=== PATIENT | female | born 1935 | race Caucasian/White ===

== ENCOUNTER 2017-01-12 09:42 | Inpatient (IN) ==
[2017-01-12] MEDS ORDERED: 0.9 % Sodium Chloride 500 ML IVC ONE (10:16)
[2017-01-12] MEDS ORDERED: Ondansetron 4 MG/2 ML VIAL IVP ONE ×2 (10:17→12:41)
--- NOTE | 2017-01-12 10:20 | Emergency Department Note ---
Disposition Clinical Impression: Small bowel obstruction, Small bowel perforation, Dehydration, Left lower lobe pneumonia, Pneumoperitoneum Disposition: Admitted As Inpatient Condition: Serious Referrals: Preeti Irvin CNP [Primary Care Provider] - Forms: ED Satisfaction Letter Time of Disposition: 11:45 Nausea/Vomiting/Diarrhea HPI - General Chief complaint: ED Nausea/Vomiting/Diarrhea Stated complaint: sick x3days/NVD Time Seen by Provider: 01/12/17 10:05 Source: patient Limitations: no limitations Nursing Notes Reviewed: Yes Vital Signs Reviewed: Yes - History of Present Illness HPI Narrative: 81-year-old female presents emergency room for nausea vomiting diarrhea and abdominal pain. Started with diarrhea on Saturday. Denies blood in her vomit or stool. No blackness to her stool. Generalized abdominal tenderness. The diarrhea has slowed down but she is now having more vomiting. No documented fevers. She states she has a history of endometrial cancer years ago and also had radiation therapy for that. She denies any recent travels. No recent antibiotic use. Unable to eat or drink much over the past few days. Pt Subjective Complaint: nausea, vomiting, diarrhea, abdominal pain Onset (ago): day(s) Description of emesis: bilious Description of Diarrhea: water, mucous Associated Abdominal Pain: Yes If pain, Location of pain: diffuse Radiation: diffuse Severity: moderate Severity scale (1-10): 5 Quality: cramping Consistency: constant Improves with: nothing Worsens with: eating Associated symptoms: Reports: denies other symptoms - Related Data Allergies Allergy/AdvReac Type Severity Reaction Status Date / Time Sulfa (Sulfonamide Allergy Hives Verified 01/12/17 09:47 Antibiotics) All systems ED: reviewed and negative except as stated. Constitutional: Reports: as per HPI Eyes: Reports: as per HPI Cardiovascular: Reports: as per HPI Respiratory: Reports: as per HPI Gastrointestinal: Reports: abdominal pain, nausea, vomiting, diarrhea Genitourinary: Reports: as per HPI Musculoskeletal: Reports: as per HPI Neurological: Reports: as per HPI Psychiatric: Reports: as per HPI Endocrine: Reports: as per HPI Hematological/Lymphatic: Reports: as per HPI Past Medical History - Past Medical History Medical history: Reports: hypertension, osteoporosis Psychiatric history: Reports: no psych history - Social History Smoking Status: Unknown if ever smoked Smokeless Tobacco Status: No Alcohol use: Reports: none Drug use: Reports: none Physical Exam - General Limitations: no limitations General appearance: alert - Head Head exam: atraumatic, normocephalic - ENT ENT exam: mucous membranes dry - Neck Neck exam: Present: normal inspection - Respiratory Respiratory exam: Present: normal lung sounds bilaterally. Absent: respiratory distress - Cardiovascular Cardiovascular exam: Present: regular rate, normal rhythm - Abdominal Exam Abdominal exam: Present: soft, tenderness (Generalized tenderness on palpation with peritoneal signs. +guarding ), hyperactive bowel sounds. Absent: diminished bowel sounds, organomegaly - Extremities Exam Extremities exam: Present: normal inspection - Expanded Lower Extremity Exam Hip/Pelvis exam: Present: normal inspection - Back Exam Back exam: Present: normal inspection - Neurological Exam Neurological exam: Present: alert, oriented X3 - Psychiatric Psychiatric exam: Present: normal affect, normal mood - Skin Skin exam: Present: warm, dry, intact Course Course Narrative: Patient CT scan was abnormal. I spoke with the radiologist who is concerned about small bowel obstruction with a questionable volvulus in the right side of her abdomen. She also has extensive free air throughout the abdomen. He suspects a perforation of the proximal jejunum. I consult with general surgery immediately. He has come down to see the patient in the emergency department. We are placing him in NG-tube for her. IV fluids are running. She will be taken to the operating room. Vital Signs Temperature 98.2 F 01/12/17 09:46 Pulse Rate 95 01/12/17 09:46 Respiratory Rate 18 01/12/17 09:46 Blood Pressure 149/82 01/12/17 09:46 O2 Sat by Pulse Oximetry 96 01/12/17 09:46 Temperature 98.2 F 01/12/17 09:46 Pulse Rate 84 01/12/17 11:17 Respiratory Rate 18 01/12/17 11:17 Blood Pressure 167/88 01/12/17 11:17 O2 Sat by Pulse Oximetry 96 01/12/17 11:17 Oxygen Delivery Oxygen Delivery Room Air Nausea/Vomiting/Diarrhea - Medical Records Medical records reviewed: Yes I reviewed the patient's medical records. - Lab Data Lab results reviewed: Yes I reviewed the patient's lab results. Result diagrams: 01/12/17 10:20 01/12/17 10:20 Lab Results 01/12/17 01/12/17 01/12/17 Range/Units 10:20 10:20 10:20 WBC 11.6 H (4.3-11.1) K/mcL RBC 4.63 (3.82-4.97) M/mcL Hgb 14.9 (11.5-15.4) g/dL Hct 42.2 (35.3-44.9) % MCV 91.1 (83.0-100.0) fL MCH 32.2 (28.0-33.3) pg MCHC 35.3 (31.6-35.5) g/dL RDW 11.9 (11.5-14.5) % Plt Count 190 (140-400) K/mcL MPV 9.5 (9.4-12.4) fL Immature Gran % 0.3 (0-4) % Seg Neutrophils % 93.9 % Lymphocytes % 2.7 % Monocytes % 3.0 % Eosinophils % 0.0 % Basophils % 0.1 % Neutrophils # 10.9 H (1.6-8.9) K/mcL Lymphocytes # 0.3 L (0.6-4.6) K/mcL Monocytes # 0.4 (0.0-1.3) K/mcL Eosinophils # 0.0 (0.0-0.6) K/mcL Basophils # 0.0 (0.0-0.2) K/mcL Sodium 127 L (136-145) mEq/L Potassium 3.3 L (3.5-4.5) mEq/L Chloride 88 L (98-109) mEq/L Carbon Dioxide 27 (19-29) mEq/L BUN 23 H (7-20) mg/dL Creatinine 0.96 (0.57-1.11) mg/dL Est GFR ( Amer) > 60 (> 60) Est GFR (Non-Af Amer) 56 L (> 60) BUN/Creatinine Ratio 24 (6-26) Glucose 185 H (70-99) mg/dL Calculated Osmolality 272 L (280-300) Lactic Acid 1.2 (0.5-2.2) mmol/L Calcium 10.0 (8.6-10.8) mg/dL Total Bilirubin 1.4 H (0.2-1.2) mg/dL Direct Bilirubin 0.6 H (0.0-0.5) mg/dL Indirect Bilirubin 0.8 (0.0-1.2) mg/dL AST 15 (5-34) Units/L ALT 17 (0-55) Units/L Alkaline Phosphatase 66 (38-126) Units/L Serum Total Protein 7.5 (6.0-8.3) g/dL Albumin 3.2 L (3.5-5.0) g/dL Globulin 4.3 H (2.4-3.5) g/dL Albumin/Globulin Ratio 0.7 L (1.1-2.2) Lipase < 4 L (8-78) Units/L - Radiology Data Radiology results reviewed: Yes I reviewed the patient's radiology results. - EKG Data EKG attestation: Yes I reviewed and interpreted this EKG. EKG results narrative: Rate of 89. Normal sinus rhythm. Normal axis. MD interval 207. QRS 93. Corrected QT 386. No signs of acute ischemia. Critical Care Time Critical Care Time: Yes Total Critical Care Time: 35 Attestation: Critical care time spent in consultation with the radiologist as well as with the general surgeon as well as medical management and preoperative workup.
[2017-01-12 10:31] LABS: Basophils % 0.1 %; Hematocrit 42.2 % (35.3-44.9); Hemoglobin 14.9 g/dL (11.5-15.4); Immature Granulocytes % 0.3 % (0-4); Lymphocytes # 0.3 K/mcL (0.6-4.6); Lymphocytes % 2.7 %; Mean Corpuscular HGB Conc 35.3 g/dL (31.6-35.5); Mean Corpuscular Hemoglobin 32.2 pg (28.0-33.3); Mean Corpuscular Volume 91.1 fL (83.0-100.0); Mean Platelet Volume 9.5 fL (9.4-12.4); Monocytes # 0.4 K/mcL (0.0-1.3); Neutrophils # 10.9 K/mcL (1.6-8.9); Platelet Count 190 K/mcL (140-400); Red Blood Count 4.63 M/mcL (3.82-4.97); Red Cell Distribution Width 11.9 % (11.5-14.5); Segmented Neutrophils % 93.9 %
[2017-01-12 10:46] LABS: Alanine Aminotransferase 17 Units/L (0-55); Albumin 3.2 g/dL (3.5-5.0); Albumin/Globulin Ratio 0.7 (1.1-2.2); Alkaline Phosphatase 66 Units/L (38-126); Aspartate Amino Transferase 15 Units/L (5-34); BUN/Creatinine Ratio 24 (6-26); Bilirubin,Direct 0.6 mg/dL (0.0-0.5); Bilirubin,Indirect 0.8 mg/dL (0.0-1.2); Bilirubin,Total 1.4 mg/dL (0.2-1.2); Blood Urea Nitrogen 23 mg/dL (7-20); Carbon Dioxide 27 mEq/L (19-29); Chloride 88 mEq/L (98-109); Globulin 4.3 g/dL (2.4-3.5); Glucose 185 mg/dL (70-99); Osmolality,Calculated 272 (280-300); Potassium 3.3 mEq/L (3.5-4.5); Sodium 127 mEq/L (136-145); Total Protein 7.5 g/dL (6.0-8.3); eGFR For African Americans > 60 (> 60); eGFR For Non-African Americans 56 (> 60)
[2017-01-12 10:47] LABS: Lipase < 4 Units/L (8-78)
[2017-01-12] MEDS ORDERED: 0.9 % Sodium Chloride 1,000 ML IVC SCH ×2 (11:30→16:24)
--- NOTE | 2017-01-12 12:06 | General Surg History&Physical ---
Date of Encounter: 01/12/17 Time of Encounter: 12:03 Assessment and Plan (1) Small bowel perforation Current Visit: Yes Status: Acute Plan for total laparotomy. It appears on the CT that she has a perforated viscus. We will identify the perforation and likely resect a portion of bowel. I have discussed with the patient's to the risks benefits and expected outcomes. Due to her advanced age and probable perforation I did explain to the patient and her that she could be transferred to the ICU following surgery and be on a short moderate term intubation and respiratory support. They understand. We discussed the other risks that include but not limited to bleeding, infection, further injury, respiratory failure, DVT/PE, heart attack and . The assessment and plan as outlined above was discussed with the patient and/or family members who expressed understanding and agreement. All questions were answered. History of Present Illness HPI: Ms. Varela is a 81 year old female with 3 days of nausea, vomiting, and abdominal pain. Patient reports that she had endometrial cancer approximately 7 -8 years ago. She underwent a robotic hysterectomy. Once surgery was completed she received radiation to her pelvis. She states she has had diarrhea on and off since that time. This tends to be food related. She reports no pain like this in the past. She states the pain is severe in nature. Seems to be all over her abdomen. She cannot locate one particular area. She finally became so ill that she had report to the emergency department. Past Med Surg Social Fam HX - Past Medical History Medical history: hypertension, osteoporosis, other (Endometrial cancer) Psychiatric history: no psych history - Past Surgical History Surgical History: hysterectomy - Social History Smoking Status: Unknown if ever smoked Smokeless Tobacco Status: No Alcohol use: none Drug use: none Medications and Allergies Allergies Sulfa (Sulfonamide Antibiotics) Allergy (Verified 01/12/17 09:47) Hives Review of Systems All systems PM: A 10-system review of systems was performed and is negative for pertinent findings except as documented above in the HPI. General Surgery Exam Initial Vital Signs Temp Pulse Resp BP Pulse Ox 98.2 F 95 18 149/82 96 01/12/17 09:46 01/12/17 09:46 01/12/17 09:46 01/12/17 09:46 01/12/17 09:46 - General physical appearance well nourished, moderate distress - Eyes PERRL, normal ocular movement - Neck trachea midline - Respiratory normal respiratory effort, clear to percussion - Cardiovascular Cardiovascular exam: Present: NR - Abdomen Abdomen general surgery: Present: tympanic, distended, tender Abdominal Tenderness: Present: diffusely - Integumentary Integumentary general surgery: Present: warm and dry, no abnormal pigmentation - Neurologic Present: CN 2-12 grossly intact, normal sensation - Musculoskeletal Present: normal gait, normal posture - Psychiatric Psychiatric general surgery: Present: A&Ox3, speech is normal Results - Labs 01/12/17 10:20 01/12/17 10:20 Abnormal lab results WBC 11.6 K/mcL (4.3-11.1) H 01/12/17 10:20 Neutrophils # 10.9 K/mcL (1.6-8.9) H 01/12/17 10:20 Lymphocytes # 0.3 K/mcL (0.6-4.6) L 01/12/17 10:20 Sodium 127 mEq/L (136-145) L 01/12/17 10:20 Potassium 3.3 mEq/L (3.5-4.5) L 01/12/17 10:20 Chloride 88 mEq/L (98-109) L 01/12/17 10:20 BUN 23 mg/dL (7-20) H 01/12/17 10:20 Est GFR (Non-Af Amer) 56 (> 60) L 01/12/17 10:20 Glucose 185 mg/dL (70-99) H 01/12/17 10:20 Calculated Osmolality 272 (280-300) L 01/12/17 10:20 Total Bilirubin 1.4 mg/dL (0.2-1.2) H 01/12/17 10:20 Direct Bilirubin 0.6 mg/dL (0.0-0.5) H 01/12/17 10:20 Albumin 3.2 g/dL (3.5-5.0) L 01/12/17 10:20 Globulin 4.3 g/dL (2.4-3.5) H 01/12/17 10:20 Albumin/Globulin Ratio 0.7 (1.1-2.2) L 01/12/17 10:20 Lipase < 4 Units/L (8-78) L 01/12/17 10:20 All other labs normal. - Imaging CT scan - abdomen: image reviewed CT scan - chest: image reviewed
[2017-01-12] MEDS ORDERED: *HR* Rocuronium Bromide 50 MG/5 ML VIAL ONE (12:15)
[2017-01-12] MEDS ORDERED: *HR* Succinylcholine 200 MG/10 ML VIAL IVP ONE (12:15)
[2017-01-12] MEDS ORDERED: *HR* FentaNYL (PF) 100 MCG/2 ML VIAL ONE ×2 (12:15→14:04)
[2017-01-12] MEDS ORDERED: *HR* Propofol 200 MG/20 ML VIAL IVP ONE (12:15)
[2017-01-12] MEDS ORDERED: Lidocaine -MPF 4% 5 ML AMPUL ONE (12:15)
--- NOTE | 2017-01-12 12:22 | Anesthesia Evaluation PreOp ---
Date of Encounter: 01/12/17 Time of Encounter: 12:20 - Past History Planned Operation: Laparotomy Cardiac History: HTN Pulmonary History: Denies Any Significant HX [employer]ER History: Denies Any Significant HX Other Medical History: Denies Any Significant HX Anesthesia History: No Prior Anesthetic Complications, Past Anesthesia (Robotic hysterectomy) Alcohol Use: none Drug use: none Medications and Allergies Aspirin 81 mg PO DAILY 01/12/17 [History] Ergocalciferol (VITAMIN D2) [Vitamin D] 400 unit PO DAILY 01/12/17 [History] LORazepam [Ativan] 1 mg PO HS 01/12/17 [History] Lisinopril/Hydrochlorothiazide [Zestoretic 20-12.5 mg Tablet] 1 each PO DAILY [History] Magnesium Oxide [Magnesium] 400 mg PO DAILY 01/12/17 [History] Mv,Ca,Fe,Min/FA/Guarana/Caff [One Daily Tablet] 1 each PO DAILY 01/12/17 [ History] Mv-Mn/FA/Vit K1/Lycop/Lut/Zeax [Ocuvite Eye + Multi Tablet] 1 each PO DAILY [History] [place]-3/Dha/Epa/Fish Oil [Fish Oil 1,000 mg Softgel] 1 each PO DAILY 01/12/17 [ History] Allergies Sulfa (Sulfonamide Antibiotics) Allergy (Verified 01/12/17 09:47) Hives - Meds/Allergy Pre-op Review Medications Reviewed: Yes Allergies Reviewed: Yes Beta Blockers on Current Med List: No Anesthesia Results - Labs 01/12/17 10:20 01/12/17 10:20 - Imaging EKG: report reviewed (SR) Anesthesia Exam Vital Signs/O2 Sat, Most Current Temp Pulse Resp BP Pulse Ox 98.2 F 84 18 167/88 96 01/12/17 09:46 01/12/17 11:17 01/12/17 11:17 01/12/17 11:17 01/12/17 11:17 Weight: 65kg NPO (# of Hours): acute abd - HEENT Pupil (Motor): Pupils equal, EOMI Mallampati: III Teeth: Normal Oral Opening: Greater than 3 - [employer] LOC: Oriented [employer] Motor: Normal RUE, Normal LUE, Normal RLE, Normal LLE, Normal Face [employer] Sensory: Normal: RUE, LUE, RLE, LLE, Face - Cardiac Rhythm: Regular - Pulmonary Breath Sounds: bilateral Clear Respiratory Effort: Symmetrical Anesthesia Assess/Plan ASA Score: 2, E Modified Lucille Scale for Level of Consciousness: Cooperative, oriented, and tranquil Anesthetic Plan: General (r/b/a discussed, questions answered, consent obtained) Monitoring Plan: Standard Monitors Recovery Plan: PACU
[2017-01-12] MEDS ORDERED: *HR* Labetalol 100 MG/20 ML MDV IVP PRN (12:41)
[2017-01-12] MEDS ORDERED: *HR* HYDROmorphone (PF) 1 MG/ML SYRINGE IVP PRN (12:41)
[2017-01-12] MEDS ORDERED: Ringers Solution, Lactated 1,000 ML IVC SCH (12:45)
[2017-01-12] MEDS ORDERED: CefOXitin 2,000 MG VIAL IVPB ONE (12:53)
[2017-01-12] MEDS ORDERED: Dexamethasone 4 MG/ML VIAL ONE (13:08)
[2017-01-12] MEDS ORDERED: Ondansetron 4 MG/2 ML VIAL ONE (13:08)
[2017-01-12] MEDS ORDERED: Neostigmine Methylsulfate 3 MG/3 ML SYRINGE ONE (13:08)
[2017-01-12] MEDS ORDERED: *HR* Phenylephrine 10 MG/ML VIAL ONE (13:09)
[2017-01-12] MEDS ORDERED: *HR* HYDROmorphone 20 MG/20 ML PCA IV PRN (14:34)
--- NOTE | 2017-01-12 15:05 | Anesthesia Evaluation Post Op ---
Date of Encounter: 01/12/17 Time of Encounter: 15:04 - Vital Signs Vital Signs: Vital Signs/O2 Sat, Most Current Temp Pulse Resp BP Pulse Ox 98.2 F 74 18 145/67 94 01/12/17 14:37 01/12/17 14:57 01/12/17 14:57 01/12/17 14:57 01/12/17 14:57 - Lungs Lungs: Clear Ascult./Percussion - Airway Airway: Non-obstructed - Cardiovascular Regular Rate - Mental Status Mental Status: Alert & Oriented, Answers Appropriately - Pain Pain Scale: 0 Pain Scale used: Numeric (1 - 10) - Nausea Vomiting Nausea Vomiting: Not Present - Hydration Hydration: NPO, Spencer catheter - Discharge PostOp Status: Transfer Patient to floor Attestation: I have assessed this patient and find they meet discharge criteria.
[2017-01-12] MEDS: 0.9 % Sodium Chloride 1,000 ML IVC SCH ×2 (16:00→23:42)
[2017-01-12] MEDS ORDERED: *HR* Promethazine 25 MG/ML VIAL IVP PRN (16:24)
[2017-01-12] MEDS ORDERED: Ondansetron 4 MG/2 ML VIAL IVP PRN (16:24)
[2017-01-12 17:35] LABS: BUN/Creatinine Ratio 29 (6-26); Blood Urea Nitrogen 24 mg/dL (7-20); Carbon Dioxide 23 mEq/L (19-29); Chloride 95 mEq/L (98-109); Glucose 190 mg/dL (70-99); Osmolality,Calculated 277 (280-300); Potassium 3.2 mEq/L (3.5-4.5); Sodium 129 mEq/L (136-145); eGFR For African Americans > 60 (> 60); eGFR For Non-African Americans > 60 (> 60)
[2017-01-12 17:36] LABS: Calcium 8.3 mg/dL (8.6-10.8)
[2017-01-12] MEDS: cefOXitin 2,000 MG in D5% in Water (Mini-Bag+) 100 ML IVPB SCH ×2 (18:08→23:41)
[2017-01-12] MEDS: *HR* Heparin 5,000 UNIT/ML VIAL SQ SCH (18:14)
[2017-01-13 03:40] LABS: Basophils % 0.1 %; Hematocrit 38.8 % (35.3-44.9); Hemoglobin 13.5 g/dL (11.5-15.4); Immature Granulocytes % 0.2 % (0-4); Lymphocytes # 0.3 K/mcL (0.6-4.6); Lymphocytes % 2.6 %; Mean Corpuscular HGB Conc 34.8 g/dL (31.6-35.5); Mean Corpuscular Hemoglobin 32.4 pg (28.0-33.3); Mean Platelet Volume 9.9 fL (9.4-12.4); Monocytes # 0.8 K/mcL (0.0-1.3); Neutrophils # 9.9 K/mcL (1.6-8.9); Platelet Count 218 K/mcL (140-400); Red Blood Count 4.17 M/mcL (3.82-4.97); Red Cell Distribution Width 12.3 % (11.5-14.5); Segmented Neutrophils % 90.1 %
[2017-01-13 04:10] LABS: Platelet Estimate Normal (Normal)
[2017-01-13] MEDS: *HR* Heparin 5,000 UNIT/ML VIAL SQ SCH ×2 (05:24→17:35)
[2017-01-13] MEDS: Pantoprazole 40 MG VIAL IVP SCH (08:19)
[2017-01-13] MEDS: cefOXitin 2,000 MG in D5% in Water (Mini-Bag+) 100 ML IVPB SCH ×3 (08:19→23:20)
--- NOTE | 2017-01-13 13:07 | General Surgery Progress Note ---
Date of Encounter: 01/13/17 Time of Encounter: 13:06 - Assessment and Plan (1) Small bowel perforation Current Visit: Yes Status: Acute Will plan for decreasing her IV fluids to 60 mL's per hour. We will maintain her NG has low intermittent suction for now. I would like for her to continue to get up to a chair at least 3 times a day and will begin ambulation tomorrow physical therapy. Subjective Patient reports: feels better Objective Vital Signs - Last 8 Hours Temp Pulse Resp BP Pulse Ox 01/13/17 10:00 98.1 F 85 16 157/83 97 01/13/17 06:48 97.8 F 99 16 146/76 93 Intake and Output 01/12/17 01/13/17 01/13/17 23:59 07:59 15:59 Intake Total 1100 / 1100 100 / 100 Output Total 0 / 0 385 / 385 260 / 260 Balance 1100 / 1100 -285 / -285 -260 / -260 Intake: IV Fluids 1100 / 1100 100 / 100 0.9 % Sodium Chloride 1, 1000 / 1000 000 ML @ 125 mls/hr IVC . Q8H SEGUNDO Rx#:[id number] Mefoxin 2,000 MG In 100 / 100 100 / 100 Dextrose 5% (Minibag+) 100 ML 100 ML @ 200 mls/ hr IVPB Q8HR SEGUNDO Rx#: [id number] Oral 0 / 0 Output: Catheter 325 / 325 200 / 200 Gastric Drainage 0 / 0 0 / 0 0 / 0 Left Nare 0 / 0 Wound Drainage 0 / 0 60 / 60 60 / 60 Abdomen 0 / 0 60 / 60 60 / 60 Other: Meal NPO Weight 65.941 kg Blood Glucose* 129 139 Patient Weight 01/13/17 23:59 Weight 65.941 kg - General physical appearance well developed, well nourished, no distress - Eyes PERRL - ENT normal nares - Neck Neck exam: trachea midline - Respiratory normal respiratory effort - Cardiovascular Cardiovascular exam: Present: tachycardia - Abdomen Abdomen: Present: soft, tender - Incision Incision: Present: clean and dry - Neurologic CN 2-12 grossly intact, normal sensation - Labs 01/13/17 02:48 01/12/17 17:01 Diabetes panel 01/12/17 Range/Units 17:01 Sodium 129 L (136-145) mEq/L Potassium 3.2 L (3.5-4.5) mEq/L Chloride 95 L (98-109) mEq/L Carbon Dioxide 23 (19-29) mEq/L BUN 24 H (7-20) mg/dL Creatinine 0.82 (0.57-1.11) mg/dL Glucose 190 H (70-99) mg/dL Calcium 8.3 L D (8.6-10.8) mg/dL Calcium panel 01/12/17 Range/Units 17:01 Calcium 8.3 L D (8.6-10.8) mg/dL Pituitary panel 01/12/17 Range/Units 17:01 Sodium 129 L (136-145) mEq/L Potassium 3.2 L (3.5-4.5) mEq/L Chloride 95 L (98-109) mEq/L Carbon Dioxide 23 (19-29) mEq/L BUN 24 H (7-20) mg/dL Creatinine 0.82 (0.57-1.11) mg/dL Glucose 190 H (70-99) mg/dL Calcium 8.3 L D (8.6-10.8) mg/dL Adrenal panel 01/12/17 Range/Units 17:01 Sodium 129 L (136-145) mEq/L Potassium 3.2 L (3.5-4.5) mEq/L Chloride 95 L (98-109) mEq/L Carbon Dioxide 23 (19-29) mEq/L BUN 24 H (7-20) mg/dL Creatinine 0.82 (0.57-1.11) mg/dL Glucose 190 H (70-99) mg/dL Calcium 8.3 L D (8.6-10.8) mg/dL - VTE Documentation of Mechanical Device: Intermittent pneumatic compression device Consult Discharge Plan - Plan Referrals: Preeti Irvin, [employer]DER [Primary Care Provider] -
[2017-01-13] MEDS: 0.9 % Sodium Chloride 1,000 ML IVC SCH (23:20)
[2017-01-14 05:19] LABS: BUN/Creatinine Ratio 28 (6-26); Blood Urea Nitrogen 24 mg/dL (7-20); Calcium 8.1 mg/dL (8.6-10.8); Carbon Dioxide 21 mEq/L (19-29); Chloride 102 mEq/L (98-109); Glucose 114 mg/dL (70-99); Osmolality,Calculated 281 (280-300); Potassium 3.4 mEq/L (3.5-4.5); Sodium 133 mEq/L (136-145); eGFR For African Americans > 60 (> 60); eGFR For Non-African Americans > 60 (> 60)
[2017-01-14] MEDS: *HR* Heparin 5,000 UNIT/ML VIAL SQ SCH (06:12)
--- NOTE | 2017-01-14 09:05 | Electrocardiograph Report ---
[address] [place], [place] [address] Test Date: 2017-01-12 Pat Name: Janey Varela Department: 103 Room: 3A11 Gender: F Recreation Assistant: AM : 1935 Requested By: Arthur Rodriguez Order Number: [id number] Reading MD: Juanjose Solorio MD Measurements Intervals [place] Rate: 89 P: 57 CO: 207 QRS: 9 QRSD: 93 T: -1 QT: 340 QTc: 386 Interpretive Statements SINUS RHYTHM WITH SINUS ARRHYTHMIA BASELINE ARTIFACT LEFT ATRIAL ENLARGEMENT Electronically Signed On 01-14-2017 9:03:59 EDT by Juanjose Solorio MD
[2017-01-14] MEDS: Pantoprazole 40 MG VIAL IVP SCH (09:19)
[2017-01-14] MEDS: cefOXitin 2,000 MG in D5% in Water (Mini-Bag+) 100 ML IVPB SCH ×3 (09:19→23:17)
[2017-01-14] MEDS ORDERED: Potassium Chloride 20 MEQ, Lidocaine 1% 2 ML in D5% in Water 250 ML IVPB ONE ×2 (12:53→14:00)
[2017-01-14] MEDS ORDERED: *HR* LORazepam 2 MG/ML VIAL IVP PRN (12:53)
--- NOTE | 2017-01-14 12:57 | General Surgery Progress Note ---
Date of Encounter: 01/14/17 Time of Encounter: 12:45 - Assessment and Plan (1) Small bowel perforation Current Visit: Yes Status: Acute POD #2 from exploratory laparotomy for small bowel perforation NPO while awaiting return of bowel function NG tube to LIWS IV fluids- 60ml/hour X-ray- acute abdominal series now Supportive care/pain control Increase activity as tolerated- out of bed to chair and ambulate PT consulted Daily dressing changes/packing ordered to start today Remove rhodes catheter Repeat am labs PPI therapy daily (2) Anxiety Current Visit: Yes Status: Chronic Ativan ordered IV prn Will monitor and adjust as necessary (3) DVT prophylaxis Current Visit: Yes Status: Acute Continue heparin 5,000 units SQ twice daily for DVT prophylaxis Subjective Patient reports: no new complaints, feels better, still having pain, pain is less, no flatus, no bowel movement, afebrile Objective Vital Signs - Last 8 Hours Temp Pulse Resp BP Pulse Ox 01/14/17 09:49 98.0 F 98 18 162/72 95 01/14/17 06:58 98.1 F 95 16 170/78 97 Intake and Output 01/13/17 01/14/17 01/14/17 23:59 07:59 15:59 Intake Total 100 / 100 100 / 100 700 / 700 Output Total 230 / 230 550 / 550 50 / 50 Balance -130 / -130 -450 / -450 650 / 650 Intake: IV Fluids 100 / 100 100 / 100 700 / 700 0.9 % Sodium Chloride 1, 600 / 600 000 ML @ 60 mls/hr IVC . [id number] SEGUNDO Rx#: [id number] Mefoxin 2,000 MG In 100 / 100 100 / 100 100 / 100 Dextrose 5% (Minibag+) 100 ML 100 ML @ 200 mls/ hr IVPB Q8HR SEGUNDO Rx#: [id number] Oral 0 / 0 0 / 0 0 / 0 Output: Catheter 150 / 150 300 / 300 Gastric Drainage 200 / 200 Wound Drainage 80 / 80 50 / 50 50 / 50 Abdomen 80 / 80 50 / 50 50 / 50 Other: Meal NPO Breakfast NPO Weight 65.884 kg Blood Glucose* 126 99 105 Patient Weight 01/14/17 23:59 Weight 65.884 kg - General physical appearance well developed, well nourished, no distress, other (Out of bed to chair) - Eyes normal ocular movement - ENT dry mucosa, atraumatic, normocephalic - Neck Neck exam: trachea midline - Respiratory normal respiratory effort, clear to auscultation - Cardiovascular Cardiovascular exam: Present: RRR - Abdomen Abdomen: Present: soft, tender (expected post-operative tenderness), wound ( Midline with packing noted; old drainage noted; DIOGENES drain to bulb suction with serousang. drainage noted (120ml noted since midnight)) - Genitourinary other (rhodes catheter to SD with clear, yellow urine noted) - Neurologic CN 2-12 grossly intact - Psychiatric oriented to time, oriented to person, oriented to place, speech is normal, memory intact - Labs 01/13/17 02:48 01/14/17 04:54 Diabetes panel 01/14/17 Range/Units 04:54 Sodium 133 L (136-145) mEq/L Potassium 3.4 L (3.5-4.5) mEq/L Chloride 102 (98-109) mEq/L Carbon Dioxide 21 (19-29) mEq/L BUN 24 H (7-20) mg/dL Creatinine 0.86 (0.57-1.11) mg/dL Glucose 114 H (70-99) mg/dL Calcium 8.1 L (8.6-10.8) mg/dL Calcium panel 01/14/17 Range/Units 04:54 Calcium 8.1 L (8.6-10.8) mg/dL Pituitary panel 01/14/17 Range/Units 04:54 Sodium 133 L (136-145) mEq/L Potassium 3.4 L (3.5-4.5) mEq/L Chloride 102 (98-109) mEq/L Carbon Dioxide 21 (19-29) mEq/L BUN 24 H (7-20) mg/dL Creatinine 0.86 (0.57-1.11) mg/dL Glucose 114 H (70-99) mg/dL Calcium 8.1 L (8.6-10.8) mg/dL Adrenal panel 01/14/17 Range/Units 04:54 Sodium 133 L (136-145) mEq/L Potassium 3.4 L (3.5-4.5) mEq/L Chloride 102 (98-109) mEq/L Carbon Dioxide 21 (19-29) mEq/L BUN 24 H (7-20) mg/dL Creatinine 0.86 (0.57-1.11) mg/dL Glucose 114 H (70-99) mg/dL Calcium 8.1 L (8.6-10.8) mg/dL - VTE Documentation of Mechanical Device: Intermittent pneumatic compression device Consult Discharge Plan - Plan Referrals: Preeti Irvin, [employer]OR [Primary Care Provider] - - Attending Attestation I examined this patient and my medical decision-making was reviewed with the ROUTE RETURNER/PA/Advanced Practice Nurse/Resident Physician. I agree with the documented findings, disposition and treatment plan as described except to the extent set forth below.
[2017-01-14] MEDS ORDERED: Acetylcysteine 10% 2 ML INHSOL IH SCH ×2 (13:00→22:00)
[2017-01-14] MEDS: Ipratropium/Albuterol Neb 3 ML IH SCH ×2 (16:55→22:08)
[2017-01-14] MEDS: Acetylcysteine 10% 2 ML INHSOL IH SCH ×2 (16:55→22:08)
[2017-01-14] MEDS: 0.9 % Sodium Chloride 1,000 ML IVC SCH (20:09)
[2017-01-15] MEDS: Ipratropium/Albuterol Neb 3 ML IH SCH ×4 (03:18→21:56)
[2017-01-15] MEDS: Acetylcysteine 10% 2 ML INHSOL IH SCH ×4 (03:18→21:56)
[2017-01-15] MEDS: *HR* Heparin 5,000 UNIT/ML VIAL SQ SCH ×3 (06:00→17:32)
[2017-01-15 06:22] LABS: BUN/Creatinine Ratio 25 (6-26); Blood Urea Nitrogen 19 mg/dL (7-20); Calcium 8.3 mg/dL (8.6-10.8); Carbon Dioxide 23 mEq/L (19-29); Chloride 102 mEq/L (98-109); Glucose 121 mg/dL (70-99); Osmolality,Calculated 280 (280-300); Potassium 3.3 mEq/L (3.5-4.5); Sodium 133 mEq/L (136-145); eGFR For African Americans > 60 (> 60); eGFR For Non-African Americans > 60 (> 60)
[2017-01-15] MEDS: cefOXitin 2,000 MG in D5% in Water (Mini-Bag+) 100 ML IVPB SCH ×2 (08:10→15:33)
--- NOTE | 2017-01-15 10:55 | Operative Note ---
Date of procedure: 01/12/17 Pre-op diagnosis: perforated viscus Post-op diagnosis: same Procedure: exploratory laparotomywith resection of terminal ileum,right colectomy,and closure of internal hernia Anesthesia: ELISABETH Surgeon: Richard Reyna Estimated blood loss (cc): 150 Specimen: terminal ileum and right colon Condition: stable Disposition: floor Procedure in Detail: After informed consent, patient was taken to the operating room placed in a supine position. Her abdomen was prepped and draped. a midline incision was then performed. Dissection was carried down through the subcutaneous tissues and the linea alba was opened. A bookwalter retractor was placed on the table. Purulent fluid was identified. Cultures were taken. An internal hernia was identified with volvulus of the small bowel and cecum. Once it was untorsed, a limited right colectomy was performed due to the poor appearance of the terminal ileum. This was performed with a MARNIE 75 mm stapler x 2 and a TA 60 stapler for a side to side, functional end to end anastomosis. The internal hernia was closed with a 2 -0 vicryl suture. The anastomosis was oversewn with a 3-0 silk suture. The abdomen was irrigated and drained. A drain was placed and secured with a 3-0 nylon suture.
[2017-01-15] MEDS ORDERED: 0.9 % Sodium Chloride 1,000 ML IVC SCH (11:19)
[2017-01-15] MEDS ORDERED: Potassium Chloride 40 MEQ, Lidocaine 1% 2 ML in D5% in Water 500 ML IVPB ONE (11:19)
--- NOTE | 2017-01-15 11:22 | General Surgery Progress Note ---
Date of Encounter: 01/15/17 Time of Encounter: 11:20 - Assessment and Plan (1) Small bowel perforation Current Visit: Yes Status: Acute POD #3 from exploratory laparotomywith resection of terminal ileum,right colectomy,and closure of internal hernia with Dr. Maribell BROOKS while awaiting return of bowel function NG tube to LIWS IV fluids- stop with start of TPN Start TPN today- total fluid rate will be TPN goal PICC line placement Supportive care/pain control Increase activity as tolerated- out of bed to chair and ambulate PT daily Daily dressing changes/packing ordered to start today Repeat am labs PPI therapy daily (2) Anxiety Current Visit: Yes Status: Chronic Ativan ordered IV prn Will monitor and adjust as necessary (3) DVT prophylaxis Current Visit: Yes Status: Acute Continue heparin 5,000 units SQ twice daily for DVT prophylaxis (4) Hypokalemia Current Visit: Yes Status: Acute Replace potassium Repeat am labs (5) Moderate protein-calorie malnutrition Current Visit: Yes Status: Acute Start TPN today Await return of bowel function Subjective Patient reports: no new complaints, feels better, still having pain, pain is less, voiding w/o difficulty, no flatus, no bowel movement, afebrile Objective Vital Signs - Last 8 Hours Temp Pulse Resp BP Pulse Ox 01/15/17 09:47 16 98 01/15/17 06:37 98.2 F 85 16 151/78 95 01/15/17 03:37 97.8 F 85 18 155/76 96 Intake and Output 01/14/17 01/15/17 01/15/17 23:59 07:59 15:59 Intake Total 500 / 500 100 / 100 331 / 331 Output Total 330 / 330 235 / 235 Balance 170 / 170 -135 / -135 331 / 331 Intake: IV Fluids 500 / 500 100 / 100 331 / 331 0.9 % Sodium Chloride 1, 400 / 400 331 / 331 000 ML @ 60 mls/hr IVC . [id number] [facility] Rx#: [id number] Mefoxin 2,000 MG In 100 / 100 100 / 100 Dextrose 5% (Minibag+) 100 ML 100 ML @ 200 mls/ hr IVPB Q8HR [facility] Rx#: [id number] Output: Urine 300 / 300 200 / 200 Gastric Drainage 0 / 0 0 / 0 Wound Drainage 30 / 30 35 / 35 Abdomen 30 / 30 35 / 35 Other: Meal NPO breakfast Weight 69.082 kg Blood Glucose* 151 117 Patient Weight 01/15/17 23:59 Weight 69.082 kg - General physical appearance well developed, well nourished, no distress, other (Out of bed to chair) - Eyes normal ocular movement - ENT dry mucosa, atraumatic, normocephalic - Neck Neck exam: trachea midline - Respiratory normal respiratory effort, clear to auscultation - Cardiovascular Cardiovascular exam: Present: RRR - Abdomen Abdomen: Present: soft, tender (expected post-operative tenderness), wound ( Midline with packing noted with small amount of serousang. drainage; DIOGENES drain to bulb suction with 95ml of serousang. drainage since midnight; NG to LIWS with scant amount of bilious drainage noted.) - Incision Incision: Present: open (Midline with packing noted with small amount of serousang. drainage.) - Integumentary no rash - Neurologic CN 2-12 grossly intact - Psychiatric oriented to time, oriented to person, oriented to place, speech is normal, memory intact - Labs 01/13/17 02:48 01/15/17 05:33 Diabetes panel 01/15/17 Range/Units 05:33 Sodium 133 L (136-145) mEq/L Potassium 3.3 L (3.5-4.5) mEq/L Chloride 102 (98-109) mEq/L Carbon Dioxide 23 (19-29) mEq/L BUN 19 (7-20) mg/dL Creatinine 0.75 (0.57-1.11) mg/dL Glucose 121 H (70-99) mg/dL Calcium 8.3 L (8.6-10.8) mg/dL Calcium panel 01/15/17 Range/Units 05:33 Calcium 8.3 L (8.6-10.8) mg/dL Pituitary panel 01/15/17 Range/Units 05:33 Sodium 133 L (136-145) mEq/L Potassium 3.3 L (3.5-4.5) mEq/L Chloride 102 (98-109) mEq/L Carbon Dioxide 23 (19-29) mEq/L BUN 19 (7-20) mg/dL Creatinine 0.75 (0.57-1.11) mg/dL Glucose 121 H (70-99) mg/dL Calcium 8.3 L (8.6-10.8) mg/dL Adrenal panel 01/15/17 Range/Units 05:33 Sodium 133 L (136-145) mEq/L Potassium 3.3 L (3.5-4.5) mEq/L Chloride 102 (98-109) mEq/L Carbon Dioxide 23 (19-29) mEq/L BUN 19 (7-20) mg/dL Creatinine 0.75 (0.57-1.11) mg/dL Glucose 121 H (70-99) mg/dL Calcium 8.3 L (8.6-10.8) mg/dL - VTE Documentation of Mechanical Device: Intermittent pneumatic compression device Consult Discharge Plan - Plan Referrals: Preeti Irvin, FLY FRAME TENDER [Primary Care Provider] - - Attending Attestation I examined this patient and my medical decision-making was reviewed with the SWITCHING OPERATOR/PA/Advanced Practice Nurse/Resident Physician. I agree with the documented findings, disposition and treatment plan as described except to the extent set forth below.
[2017-01-15] MEDS ORDERED: D10% in Water 500 ML IVC PRN (11:41)
[2017-01-15] MEDS ORDERED: *HR* HYDROmorphone 20 MG/20 ML PCA IVC PRN (11:45)
[2017-01-15] MEDS: Pantoprazole 40 MG VIAL IVP SCH (11:51)
[2017-01-15] MEDS ORDERED: Acetaminophen IV 1,000 MG/100 ML INFUS..BTL IVPB PRN (13:35)
[2017-01-15] MEDS ORDERED: *HR* HYDROmorphone (PF) 1 MG/ML SYRINGE IVP PRN (13:36)
[2017-01-15] MEDS ORDERED: Clinimix E 5%-15% SOLUTION 2,000 ML with MVI, adult with vitamin K 10 ML IVC SCH (17:00)
[2017-01-16] MEDS: cefOXitin 2,000 MG in D5% in Water (Mini-Bag+) 100 ML IVPB SCH ×4 (00:09→23:53)
[2017-01-16] MEDS: Ipratropium/Albuterol Neb 3 ML IH SCH ×2 (03:51→08:02)
[2017-01-16] MEDS: Acetylcysteine 10% 2 ML INHSOL IH SCH ×2 (03:51→08:02)
[2017-01-16 05:09] LABS: Basophils % 0.1 %; Eosinophils # 0.2 K/mcL (0.0-0.6); Eosinophils % 2.2 %; Hematocrit 33.2 % (35.3-44.9); Immature Granulocytes % 1.7 % (0-4); Lymphocytes # 0.6 K/mcL (0.6-4.6); Lymphocytes % 7.2 %; Mean Corpuscular HGB Conc 35.5 g/dL (31.6-35.5); Mean Corpuscular Hemoglobin 32.3 pg (28.0-33.3); Mean Platelet Volume 9.1 fL (9.4-12.4); Monocytes # 0.8 K/mcL (0.0-1.3); Monocytes % 9.2 %; Platelet Count 219 K/mcL (140-400); Red Blood Count 3.65 M/mcL (3.82-4.97); Red Cell Distribution Width 12.1 % (11.5-14.5); Segmented Neutrophils % 79.6 %
[2017-01-16 05:12] LABS: Hemoglobin 11.8 g/dL (11.5-15.4)
[2017-01-16 05:20] LABS: BUN/Creatinine Ratio 18 (6-26); Blood Urea Nitrogen 13 mg/dL (7-20); Calcium 8.1 mg/dL (8.6-10.8); Carbon Dioxide 25 mEq/L (19-29); Chloride 102 mEq/L (98-109); Glucose 138 mg/dL (70-99); Magnesium 1.5 mg/dL (1.6-2.6); Osmolality,Calculated 282 (280-300); Phosphorous 1.5 mg/dL (2.3-4.7); Potassium 3.6 mEq/L (3.5-4.5); Sodium 135 mEq/L (136-145); Triglycerides 136 mg/dL (< 150); eGFR For African Americans > 60 (> 60); eGFR For Non-African Americans > 60 (> 60)
[2017-01-16 05:32] LABS: Albumin 1.9 g/dL (3.5-5.0)
[2017-01-16] MEDS: *HR* Heparin 5,000 UNIT/ML VIAL SQ SCH ×2 (06:31→17:43)
[2017-01-16] MEDS: Pantoprazole 40 MG VIAL IVP SCH (07:42)
[2017-01-16] MEDS ORDERED: *HR* Dextrose 50 % in Water (Syg) 50 ML SYRINGE IVP PRN (13:15)
[2017-01-16] MEDS ORDERED: D5% in Water 1,000 ML IVC PRN (13:15)
[2017-01-16] MEDS ORDERED: Dextrose Gel 15 GM PO PRN ×2 (13:15)
--- NOTE | 2017-01-16 13:25 | General Surgery Progress Note ---
Date of Encounter: 01/16/17 Time of Encounter: 13:00 - Assessment and Plan (1) Small bowel perforation Current Visit: Yes Status: Acute POD #4 from exploratory laparotomywith resection of terminal ileum,right colectomy,and closure of internal hernia with Dr. Reyna NG tube removal Full liquid diet with protein supplements TPN therapy- will wean when tolerating oral diet Supportive care/pain control- PO pain medications ordered Increase activity as tolerated- out of bed to chair and ambulate PT daily Daily dressing changes/packing ordered to start today PPI therapy daily Resume home medications (2) Anxiety Current Visit: Yes Status: Chronic Resume home medications Will monitor and adjust as necessary (3) Hypokalemia Current Visit: Yes Status: Resolved (4) Moderate protein-calorie malnutrition Current Visit: Yes Status: Acute Full liquids with protein supplements today Will wean TPN when tolerating PO intake (5) DVT prophylaxis Current Visit: Yes Status: Acute Continue heparin 5,000 units SQ twice daily for DVT prophylaxis Subjective Patient reports: feels better, still having pain, pain is less, voiding w/o difficulty, flatus, bowel movement, diarrhea, afebrile Objective Vital Signs - Last 8 Hours Temp Pulse Resp BP Pulse Ox 01/16/17 08:18 97.9 F 89 16 167/81 95 Intake and Output 01/15/17 01/16/17 01/16/17 23:59 07:59 15:59 Intake Total 477 / 477 100 / 100 350 / 350 Output Total 1120 / 1120 1665 / 1665 469 / 469 Balance -643 / -643 -1565 / -1565 -119 / -119 Intake: IV Fluids 227 / 227 100 / 100 350 / 350 0.9 % Sodium Chloride 1, 127 / 127 000 ML @ 60 mls/hr IVC . [id number] [facility] Rx#: [id number] Mefoxin 2,000 MG In 100 / 100 100 / 100 100 / 100 Dextrose 5% (Minibag+) 100 ML 100 ML @ 200 mls/ hr IVPB Q8HR [facility] Rx#: [id number] Intralipid 20% 250 ML @ 250 / 250 21 mls/hr IVPB DAILY@1700 [facility] Rx#:[id number] Oral 250 / 250 0 / 0 Output: Urine 1000 / 1000 1575 / 1575 0 / 0 Urine/Stool Mix 400 / 400 Gastric Drainage 0 / 0 Left Nare 0 / 0 Wound Drainage 120 / 120 90 / 90 Abdomen 120 / 120 90 / 90 Other: Meal NPO NPO Stool Size Small Stool Consistency loose soft Stool Color Brown Weight 69.1 kg Blood Glucose* 159 140 187 Patient Weight 01/16/17 23:59 Weight 69.1 kg - General physical appearance well developed, well nourished, no distress - Eyes normal ocular movement - ENT normal mucosa, atraumatic, normocephalic - Neck Neck exam: trachea midline - Respiratory normal respiratory effort, clear to auscultation - Cardiovascular Cardiovascular exam: Present: RRR - Abdomen Abdomen: Present: bowel sounds present, soft, tender (expected post-operative tenderness), wound (NG tube clamped) - Incision Incision: Present: open (Midline with packing noted, small amount of serous drainage noted.) - Neurologic CN 2-12 grossly intact - Musculoskeletal normal gait, normal posture - Psychiatric oriented to time, oriented to person, oriented to place, speech is normal, memory intact - Labs 01/16/17 04:50 01/16/17 04:50 Diabetes panel 01/16/17 Range/Units 04:50 Sodium 135 L (136-145) mEq/L Potassium 3.6 (3.5-4.5) mEq/L Chloride 102 (98-109) mEq/L Carbon Dioxide 25 (19-29) mEq/L BUN 13 (7-20) mg/dL Creatinine 0.74 (0.57-1.11) mg/dL Glucose 138 H (70-99) mg/dL Calcium 8.1 L (8.6-10.8) mg/dL Albumin 1.9 L (3.5-5.0) g/dL Triglycerides 136 (< 150) mg/dL Calcium panel 01/16/17 Range/Units 04:50 Calcium 8.1 L (8.6-10.8) mg/dL Phosphorus 1.5 L (2.3-4.7) mg/dL Albumin 1.9 L (3.5-5.0) g/dL Pituitary panel 01/16/17 Range/Units 04:50 Sodium 135 L (136-145) mEq/L Potassium 3.6 (3.5-4.5) mEq/L Chloride 102 (98-109) mEq/L Carbon Dioxide 25 (19-29) mEq/L BUN 13 (7-20) mg/dL Creatinine 0.74 (0.57-1.11) mg/dL Glucose 138 H (70-99) mg/dL Calcium 8.1 L (8.6-10.8) mg/dL Adrenal panel 01/16/17 Range/Units 04:50 Sodium 135 L (136-145) mEq/L Potassium 3.6 (3.5-4.5) mEq/L Chloride 102 (98-109) mEq/L Carbon Dioxide 25 (19-29) mEq/L BUN 13 (7-20) mg/dL Creatinine 0.74 (0.57-1.11) mg/dL Glucose 138 H (70-99) mg/dL Calcium 8.1 L (8.6-10.8) mg/dL Albumin 1.9 L (3.5-5.0) g/dL - VTE Documentation of Mechanical Device: Intermittent pneumatic compression device Consult Discharge Plan - Plan Referrals: Preeti Irvin, SHANK CARRIER [Primary Care Provider] - - Attending Attestation I examined this patient and my medical decision-making was reviewed with the BIOMEDICAL ENGINEERING TECHNICIAN/PA/Advanced Practice Nurse/Resident Physician. I agree with the documented findings, disposition and treatment plan as described except to the extent set forth below.
[2017-01-16] MEDS ORDERED: *HR* HYDROcodone/Acet 5/325 mg TABLET PO PRN (13:35)
[2017-01-16] MEDS ORDERED: Saline Nasal Spray 44 ML BOTTLE NS PRN (13:36)
[2017-01-16] MEDS ORDERED: *HR* HYDROmorphone (PF) 1 MG/ML SYRINGE IVP PRN (13:37)
[2017-01-16] MEDS: Lisinopril-HCTZ 20-12.5mg TABLET PO SCH (15:25)
[2017-01-16] MEDS: Magnesium Oxide 400 MG TABLET PO SCH (15:25)
[2017-01-16] MEDS ORDERED: Loperamide 1 MG/5 ML UDC PO PRN (16:04)
[2017-01-16] MEDS ORDERED: Clinimix E 5%-15% SOLUTION 2,000 ML with MVI, adult with vitamin K 10 ML, Magnesium S... IVC SCH (17:00)
[2017-01-16] MEDS: Insulin LISPRO 300 UNITS/3 ML VIAL SQ SCH ×2 (17:44→20:28)
[2017-01-16] MEDS: *HR* LORazepam 1 MG TABLET PO SCH (20:28)
[2017-01-17 04:02] LABS: BUN/Creatinine Ratio 18 (6-26); Blood Urea Nitrogen 14 mg/dL (7-20); Calcium 8.7 mg/dL (8.6-10.8); Carbon Dioxide 25 mEq/L (19-29); Chloride 99 mEq/L (98-109); Glucose 165 mg/dL (70-99); Magnesium 1.3 mg/dL (1.6-2.6); Osmolality,Calculated 278 (280-300); Potassium 3.4 mEq/L (3.5-4.5); Sodium 132 mEq/L (136-145); eGFR For African Americans > 60 (> 60); eGFR For Non-African Americans > 60 (> 60)
[2017-01-17 04:03] LABS: Phosphorous 2.3 mg/dL (2.3-4.7)
[2017-01-17] MEDS: *HR* Heparin 5,000 UNIT/ML VIAL SQ SCH ×2 (05:44→16:26)
[2017-01-17] MEDS: Insulin LISPRO 300 UNITS/3 ML VIAL SQ SCH ×4 (09:06→20:46)
[2017-01-17] MEDS: cefOXitin 2,000 MG in D5% in Water (Mini-Bag+) 100 ML IVPB SCH (09:07)
[2017-01-17] MEDS: Aspirin 81 MG TAB.CHEW PO SCH (09:09)
[2017-01-17] MEDS: Magnesium Oxide 400 MG TABLET PO SCH (09:09)
[2017-01-17] MEDS: Lisinopril-HCTZ 20-12.5mg TABLET PO SCH (09:09)
--- NOTE | 2017-01-17 12:55 | General Surgery Progress Note ---
Date of Encounter: 01/17/17 Time of Encounter: 12:00 - Assessment and Plan (1) Small bowel perforation Current Visit: Yes Status: Acute POD #5 from exploratory laparotomywith resection of terminal ileum,right colectomy,and closure of internal hernia with Dr. Reyna Advance to soft diet TPN therapy- stop today at 1700 Supportive care/pain control- PO pain medications ordered Increase activity as tolerated- out of bed to chair and ambulate PT daily Daily dressing changes/packing ordered to start today PPI therapy daily Resume home medications D/C planning- will need home health care (2) Anxiety Current Visit: Yes Status: Chronic Resume home medications Will monitor and adjust as necessary (3) Hypokalemia Current Visit: Yes Status: Resolved Replace potassium Repeat am labs (4) Moderate protein-calorie malnutrition Current Visit: Yes Status: Acute Advance to soft diet Will stop TPN at 1700 today (5) DVT prophylaxis Current Visit: Yes Status: Acute Continue heparin 5,000 units SQ twice daily for DVT prophylaxis Subjective Patient reports: no new complaints, feels better, still having pain, pain is less, tolerating liquids well (full liquids), voiding w/o difficulty, flatus, bowel movement, diarrhea (improving), afebrile Objective Vital Signs - Last 8 Hours Temp Pulse Resp BP Pulse Ox 01/17/17 10:25 97.9 F 95 14 135/81 98 01/17/17 06:34 97.7 F 80 18 158/85 98 Intake and Output 01/16/17 01/17/17 01/17/17 23:59 07:59 15:59 Intake Total 0 / 0 350 / 350 440 / 440 Output Total 760 / 760 935 / 935 200 / 200 Balance -760 / -760 -585 / -585 240 / 240 Intake: IV Fluids 350 / 350 100 / 100 Mefoxin 2,000 MG In 100 / 100 100 / 100 Dextrose 5% (Minibag+) 100 ML 100 ML @ 200 mls/ hr IVPB Q8HR [facility] Rx#: [id number] Intralipid 20% 250 ML @ 250 / 250 21 mls/hr IVPB DAILY@1700 [facility] Rx#:[id number] Oral 0 / 0 340 / 340 Infusion Intake 0 / 0 Output: Urine 400 / 400 100 / 100 200 / 200 Stool 300 / 300 Urine/Stool Mix 750 / 750 Wound Drainage 60 / 60 85 / 85 0 / 0 Abdomen 60 / 85 0 / 0 Other: Meal Breakfast Percent of Meal Consumed 100% Stool Size Moderate Stool Consistency liquid liquid Stool Color Brown Yellow Yellow Green # Bowel Movements 0 0 Weight 68.13 kg Blood Glucose* 161 183 130 Patient Weight 01/17/17 23:59 Weight 68.13 kg - General physical appearance well developed, well nourished, no distress - Eyes normal ocular movement - ENT normal mucosa, atraumatic, normocephalic - Neck Neck exam: trachea midline - Respiratory normal respiratory effort, clear to auscultation - Abdomen Abdomen: Present: bowel sounds present, soft, tender (minimal, expected post- operative tenderness), wound (DIOGENES drain to bulb suction with serous drainage noted) - Incision Incision: Present: open (Midline with packing noted, scant amount of serous drainage noted) - Neurologic CN 2-12 grossly intact - Psychiatric oriented to time, oriented to person, oriented to place, speech is normal, memory intact - Labs 01/16/17 04:50 01/17/17 03:30 Diabetes panel 01/17/17 Range/Units 03:30 Sodium 132 L (136-145) mEq/L Potassium 3.4 L (3.5-4.5) mEq/L Chloride 99 (98-109) mEq/L Carbon Dioxide 25 (19-29) mEq/L BUN 14 (7-20) mg/dL Creatinine 0.77 (0.57-1.11) mg/dL Glucose 165 H (70-99) mg/dL Calcium 8.7 (8.6-10.8) mg/dL Calcium panel 01/17/17 Range/Units 03:30 Calcium 8.7 (8.6-10.8) mg/dL Phosphorus 2.3 D (2.3-4.7) mg/dL Pituitary panel 01/17/17 Range/Units 03:30 Sodium 132 L (136-145) mEq/L Potassium 3.4 L (3.5-4.5) mEq/L Chloride 99 (98-109) mEq/L Carbon Dioxide 25 (19-29) mEq/L BUN 14 (7-20) mg/dL Creatinine 0.77 (0.57-1.11) mg/dL Glucose 165 H (70-99) mg/dL Calcium 8.7 (8.6-10.8) mg/dL Adrenal panel 01/17/17 Range/Units 03:30 Sodium 132 L (136-145) mEq/L Potassium 3.4 L (3.5-4.5) mEq/L Chloride 99 (98-109) mEq/L Carbon Dioxide 25 (19-29) mEq/L BUN 14 (7-20) mg/dL Creatinine 0.77 (0.57-1.11) mg/dL Glucose 165 H (70-99) mg/dL Calcium 8.7 (8.6-10.8) mg/dL - VTE Documentation of Mechanical Device: Intermittent pneumatic compression device Consult Discharge Plan - Plan Referrals: Preeti Irvin, A R COLLECTIONS REP [Primary Care Provider] - - Attending Attestation I examined this patient and my medical decision-making was reviewed with the ANALYTICAL STRATEGIST/PA/Advanced Practice Nurse/Resident Physician. I agree with the documented findings, disposition and treatment plan as described except to the extent set forth below.
--- NOTE | 2017-01-17 13:01 | Physician Discharge Referral ---
Home Health/Hosp Referral Info Transfer to: Home Health Attending Provider: Dr. Leo Reyna Provider in Charge Post Discharge: Other (PCP and Dr. Leo Reyna) - Diagnosis (1) Small bowel perforation Priority: Primary Status: Resolved (2) Anxiety Priority: Secondary Status: Chronic (3) Hypokalemia Priority: Secondary Status: Resolved (4) Moderate protein-calorie malnutrition Priority: Secondary Status: Acute (5) DVT prophylaxis Priority: Secondary Status: Acute - Respiratory Orders None - Dressing/Wound Care Site: Midline abdomen Type of Dressing/Treatments w/Frequency: Cleanse with soap and water in the shower and then pat dry, pack open areas with 1/4 inch plain packing, cover with 5X9 ABD pad and tape to secure daily DIOGENES drain- cleanse site with soap and water and pat dry daily, apply split 4X4 gauze and tape to secure daily. Empty drain 2 times daily and as needed and record drainage. Bring records to follow-up surgical appointment. - Diet/Nutrition Diet/Nutrition Orders: Regular - Activity Activity Orders: Up ad sada, Ambulate, Chair - Services Needed Following services are medically necessary services: Nursing, Physical Therapy Home Care Orders: Cleanse with soap and water in the shower and then pat dry, pack open areas with 1/4 inch plain packing, cover with 5X9 ABD pad and tape to secure daily DIOGENES drain- cleanse site with soap and water and pat dry daily, apply split 4X4 gauze and tape to secure daily. Empty drain 2 times daily and as needed and record drainage. Bring records to follow-up surgical appointment. - Transfer Medications Prescriptions: HYDROcodone/Acet 5/325 mg [[place] 5-325 mg] 1 tab PO Q6HR PRN #30 tablet PRN Reason: Moderate Pain Home Medications: Aspirin 81 mg PO DAILY 01/12/17 [History] Ergocalciferol (VITAMIN D2) [Vitamin D] 400 unit PO DAILY 01/12/17 [History] LORazepam [Ativan] 1 mg PO HS 01/12/17 [History] Lisinopril/Hydrochlorothiazide [Zestoretic 20-12.5 mg Tablet] 1 each PO DAILY [History] Magnesium Oxide [Magnesium] 400 mg PO DAILY 01/12/17 [History] Mv,Ca,Fe,Min/FA/Guarana/Caff [One Daily Tablet] 1 each PO DAILY 01/12/17 [ History] Mv-Mn/FA/Vit K1/Lycop/Lut/Zeax [Ocuvite Eye + Multi Tablet] 1 each PO DAILY [History] [place]-3/Dha/Epa/Fish Oil [Fish Oil 1,000 mg Softgel] 1 each PO DAILY 01/12/17 [ History] HYDROcodone/Acet 5/325 mg [[place] 5-325 mg] 1 tab PO Q6HR PRN #30 tablet [Rx] Allergies/Adverse Reactions: Allergies Sulfa (Sulfonamide Antibiotics) Allergy (Verified 01/12/17 09:47) Hives Certification: Further, I certify that my clinical findings support that this patient is homebound (i.e. absences from home require considerable and taxing effort and are for medical reasons or judaism services or infrequently or short duration when for other reasons) because: Homebound Reason: Patient requires assistance of a person or device to safely leave home, Post-surgery restriction and or conditions limit ability to leave home, Leaving home requires considerable and taxing effort due to condition Attestation: My signature below is to certify that this patient is under my care and that I, or nurse practitioner, or a physician's physiotherapy assistant working with me, has a face-to -face encounter with this patient.
[2017-01-17] MEDS: *HR* LORazepam 1 MG TABLET PO SCH (20:49)
[2017-01-18] MEDS: *HR* Heparin 5,000 UNIT/ML VIAL SQ SCH (05:16)
[2017-01-18 06:29] LABS: BUN/Creatinine Ratio 21 (6-26); Blood Urea Nitrogen 15 mg/dL (7-20); Calcium 8.6 mg/dL (8.6-10.8); Carbon Dioxide 26 mEq/L (19-29); Chloride 102 mEq/L (98-109); Glucose 125 mg/dL (70-99); Osmolality,Calculated 282 (280-300); Potassium 4.1 mEq/L (3.5-4.5); Sodium 135 mEq/L (136-145); eGFR For African Americans > 60 (> 60); eGFR For Non-African Americans > 60 (> 60)
[2017-01-18] MEDS: Aspirin 81 MG TAB.CHEW PO SCH (08:04)
[2017-01-18] MEDS: Magnesium Oxide 400 MG TABLET PO SCH (08:04)
[2017-01-18] MEDS: Lisinopril-HCTZ 20-12.5mg TABLET PO SCH (08:04)
[2017-01-18] MEDS: Insulin LISPRO 300 UNITS/3 ML VIAL SQ SCH (08:04)
--- NOTE | 2017-01-18 08:28 | Discharge Summary ---
Date of Encounter: 01/18/17 Time of Encounter: 08:25 - Discharge Diagnosis (1) Small bowel perforation Priority: Primary Status: Resolved (2) Anxiety Priority: Secondary Status: Chronic (3) Hypokalemia Priority: Secondary Status: Resolved (4) Moderate protein-calorie malnutrition Priority: Secondary Status: Acute - Discharge Medications Prescriptions: HYDROcodone/Acet 5/325 mg [[place] 5-325 mg] 1 tab PO Q6HR PRN #30 tablet PRN Reason: Moderate Pain Home Medications: Aspirin 81 mg PO DAILY 01/12/17 [History] Ergocalciferol (VITAMIN D2) [Vitamin D] 400 unit PO DAILY 01/12/17 [History] LORazepam [Ativan] 1 mg PO HS 01/12/17 [History] Lisinopril/Hydrochlorothiazide [Zestoretic 20-12.5 mg Tablet] 1 each PO DAILY [History] Magnesium Oxide [Magnesium] 400 mg PO DAILY 01/12/17 [History] Mv,Ca,Fe,Min/FA/Guarana/Caff [One Daily Tablet] 1 each PO DAILY 01/12/17 [ History] Mv-Mn/FA/Vit K1/Lycop/Lut/Zeax [Ocuvite Eye + Multi Tablet] 1 each PO DAILY [History] [place]-3/Dha/Epa/Fish Oil [Fish Oil 1,000 mg Softgel] 1 each PO DAILY 01/12/17 [ History] HYDROcodone/Acet 5/325 mg [[place] 5-325 mg] 1 tab PO Q6HR PRN #30 tablet [Rx] Allergies/Adverse Reactions: Allergies Sulfa (Sulfonamide Antibiotics) Allergy (Verified 01/12/17 09:47) Hives General Surgery Exam Initial Vital Signs Temp Pulse Resp BP Pulse Ox 98.2 F 95 18 149/82 96 01/12/17 09:46 01/12/17 09:46 01/12/17 09:46 01/12/17 09:46 01/12/17 09:46 - General physical appearance well developed, well nourished, no distress - Eyes normal ocular movement - ENT normal mucosa, atraumatic, normocephalic - Neck trachea midline - Respiratory normal respiratory effort, clear to auscultation - Cardiovascular Cardiovascular exam: Present: RRR - Abdomen Abdomen general surgery: Present: bowel sounds present, soft, tender (expected post-operative tenderness), wound (DIOGENES drain to bulb suction with serous drainage noted (90ml noted since midnight)) - Incision Incision: Present: open (Midline with with packing in place with small amount of serous drainage noted without odor.) - Integumentary Integumentary general surgery: Present: warm and dry - Neurologic Present: CN 2-12 grossly intact - Musculoskeletal Present: normal gait, normal posture - Psychiatric Psychiatric general surgery: Present: appropriate, oriented to person, oriented to place, oriented to time, speech is normal, memory intact Date of admission: 01/12/17 16:24 Primary care physician: Preeti Irvin CNP Consults: 01/14/17 13:00 Consult to Physical Therapy [CONS] Routine Comment: Evaluate, develop and implement POC 01/15/17 11:16 Consult to Invasive Line Access Team [CONS] Routine Reason for Consult: PICC line placement Line Type: PICC PICC line indications: Parental nutrition Time Notified: 11:17 Call Completed: Yes 01/15/17 11:17 consult to pump house technician [Consult to Nutrition] [CONS] Routine Comment: stop TPN at 1700 today Consulting Provider: NUTRITION Reason for Dietary Consult: TPN Start and Manage 01/15/17 13:24 Consult to Invasive Line Access Team [CONS] Routine Reason for Consult: Picc Line Insertion for TPN Line Type: PICC Discharging clinician: Richard Reyna (Eddie Brand) Anticipated date of discharge: 01/18/17 - Patient Status Disposition: Home Health Service Condition: Good Functional capacity at discharge: independent ambulation Overall status at discharge: patient is progressing back to baseline - Discharge Instructions Follow Up With: Preeti Irvin CNP [Primary Care Provider] - Celi Brand CNP [Advanced Practice Nurse] - 01/31/17 10:00 am (surgery follow-up) Additional Instructions: Wound care: Cleanse with soap and water in the shower and then pat dry, pack open areas with 1/4 inch plain packing, cover with 5X9 ABD pad and tape to secure daily DIOGENES drain- cleanse site with soap and water and pat dry daily, apply split 4X4 gauze and tape to secure daily. Empty drain 2 times daily and as needed and record drainage. Bring records to follow-up surgical appointment. Surgical instructions: #1 May shower, no tub bath until cleared per surgeon #2 Cleanse incisions with soap and water and pat dry daily #3 No lifting/pushing/pulling greater than 15 lb. for a total of 6 weeks from the date of surgery #4 No driving until off of narcotics for 24 hours and able to safely react in the car #5 May climb stairs - Diet and Activity Activity: other (See additional instructions above) Diet: advance to your usual diet - Hospital Course Hospital course: Ms. Varela is a 81 year old female who presented to the ED with abdominal pain and was found to have a perforated viscous. She was taken to the operating room urgently and did undergo a exploratory laparotomy with resection of terminal ileum,right colectomy,and closure of internal hernia per Dr. Reyna. She was maintained on bowel rest with NG tube to LIWS while awaiting return of bowel function. She was supported with TPN while NPO. She was maintained on IV antibiotics. With return of bowel function, her NG tube was removed and she was started on clear liquids. She has slowly been advanced as tolerated and she is currently tolerating a soft diet. Her vital signs are stable and she is afebrile. Her laboratory values are stable. Her pain is well controlled. She is voiding and ambulating without difficulty. We will begin discharge planning and plan for outpatient follow-up in the next 10-14 days. Pathology reviewed prior to discharge. - Time Spent with Patient Total time spent providing and/or coordinating discharge services: Greater than 30 minutes Labs on day of discharge: Labs from last 24 hours 01/18/17 01/18/17 01/17/17 06:08 06:00 20:16 Sodium 135 L Potassium 4.1 Chloride 102 Carbon Dioxide 26 BUN 15 Creatinine 0.70 Est GFR ( Amer) > 60 Est GFR (Non-Af Amer) > 60 BUN/Creatinine Ratio 21 Glucose 125 H POC Glucose 110 H 127 H Calculated Osmolality 282 Calcium 8.6 01/17/17 01/17/17 16:02 11:22 Sodium Potassium Chloride Carbon Dioxide BUN Creatinine Est GFR ( Amer) Est GFR (Non-Af Amer) BUN/Creatinine Ratio Glucose POC Glucose 152 H 130 H Calculated Osmolality Calcium - Impressions ITS Impressions Chest/Abdomen X-ray 01/14/17 12:52 IMPRESSION: 1. No acute abnormalities are seen in the chest or abdomen. 2. Hypoaeration at the lung bases. D/ / 01/14/2017 14:11:00 Guille Franz MD / gunjan Interpreting Provider: Guille Franz MD
[2017-01-18 11:40] VITALS: BP 141/82
== END 2017-01-18 14:42 | disposition home health service (06) | DRG 330 ==
LOC: EMEROO 09:42 → 3ANU 09:42
PROVIDERS: ADMIT Surgery; ATTEND Surgery